=== PATIENT | male | born 2000 ===

== ENCOUNTER 2022-01-24 23:26 | Emergency (ER) | payer BC, SELFPAY ==
[2022-01-25 01:01] VITALS: BP 153/79; PULSE 72; RESP 18; TEMP 36.8; O2SAT 99; BMI 26.5
[2022-01-25 01:39] LABS: PCR FLU A Negative PCR FLU A (Negative); PCR FLU B Negative PCR FLU B (Negative)
[2022-01-25 01:46] LABS: SARS PCR* Negative SARS-CoV-2 (Negative)
--- NOTE | 2022-01-25 01:49 | CRLHL7_ITS ---
For Patients: As a result of the Cures Act, medical imaging exams and procedure reports are released immediately into your electronic medical record. You may view this report before your referring provider. If you have questions, please contact your health care provider. INDICATION: Right upper quadrant pain. COMPARISON: None available. TECHNIQUE: Ultrasound examination of the right upper quadrant was performed. FINDINGS: The gallbladder is contracted, with normal thickness of its wall at 3 millimeters. There is no sign of cholelithiasis. The patient has severe epigastric pain, 8/10. The pain is not localized to the right upper quadrant however. The common bile duct is normal in caliber at 3 mm. The pancreas is obscured by bowel gas. The abdominal aorta and visualized portions of the inferior vena cava are normal in appearance. The liver shows no sign of mass or contour abnormality, and there is no sign of ascites. There is antegrade flow in the main portal vein. The right kidney has an interpolar simple cyst measuring 1.7 x 1.6 x 1.5 centimeters. IMPRESSION: Severe epigastric pain. Collapsed gallbladder which is otherwise normal in appearance. No sign of biliary ductal dilatation. Dictated by Gato Patel MD @ 01/25/2022 4:09:35 AM (Electronically Signed)
--- NOTE | 2022-01-25 01:50 | ED_ITS ---
HPI - General Adult General Time Seen by Provider: 01:50 Date Seen: 01/25/22 Chief complaint: Abdominal Pain Stated complaint: Abdominal pain Time Seen by Provider: 01/25/22 01:41 Source: patient and RN notes reviewed Mode of arrival: ambulatory Limitations: no limitations History of Present Illness HPI narrative: 21-year-old male who presents today with epigastric pain starting yesterday. Pain is constant, worse with movement, does not seem to be better or worse with eating or drinking. He took Tums at home with no improvement. No nausea vomiting, no diarrhea, normal bowel movement yesterday. No prior surgeries. Notes some body aches as well. Denies sore throat, runny nose, cough, chest, difficulty breathing. Related Data Home Medications Medication Instructions Recorded Confirmed No Known Home Medications 01/25/22 01/25/22 Allergies Allergy/AdvReac Type Severity Reaction Status Date / Time No Known Drug Allergies Allergy Verified 01/25/22 01:03 Review of Systems Status of ROS: Reports: 10 or more systems reviewed and unremarkable except as noted in History and below [facility] Medical History (Updated 01/25/22 @ 04:48 by Darren Hsu MD) No significant past medical history Surgical History (Updated 01/25/22 @ 04:22 by Juan Carlos Torrez RN) No significant past surgical history Social History Smoking Status: Never smoker Do you use any of these nicotine containing products: None Second hand tobacco smoke exposure: No How often do you have a drink containing alcohol: never How often do you have six or more drinks on one occasion: Never AUDIT-C Alcohol total score: 0 Non-prescribed substance use: denies use Exam Narrative: Exam Narrative: General: Well-developed and well-nourished, no acute distress Head: Atraumatic and normocephalic Eyes: Pupils are equal reactive, extraocular motions intact, conjunctiva clear ENT: External nose and ears are normal, posterior pharynx without erythema or exudate Neck: No midline cervical tenderness, full spontaneous range of motion the neck, trachea midline, no adenopathy Heart: Regular rate and rhythm no murmurs or thrills Lungs: Clear to auscultation bilaterally without wheezes or crackles Abdomen: Soft, right upper quadrant and epigastric tenderness, nondistended with active bowel sounds Musculoskeletal: No tenderness, deformity, or edema Neurologic: Awake, alert, and oriented x3, no gross focal neurologic deficits, cranial nerves intact as tested Psych: Mood and affect are appropriate Skin: No rashes Const: Vital Signs, click to edit/add: Vital Signs - 24 hr 01/25/22 01:01 01/25/22 04:22 Temperature 98.3 F 98.5 F Pulse Rate [Right Pulse Oximeter] 72 79 Respiratory Rate 18 18 Blood Pressure [Ri ght Upper Arm] 153/79 H 144/74 H Pulse Oximetry 99 99 Oxygen Delivery Me thod Room Air Room Air Course Course Hospital Course: Patient seen and examined, prior records are reviewed. Differential diagnosis includes but not limited to pancreatitis, gastritis, colitis, cholecystitis. Patient presents with epigastric pain today, on exam has epigastric and right upper quadrant tenderness. Labs and ultrasound ordered, patient declines pain medication. Reevaluation(s) Reevaluation #1: Labs are reassuring, ultrasound does not demonstrate any acute cholecystitis of the finding. Symptoms are most consistent with gastritis and possible early ulcer. Discussed starting PPI, avoidance of ibuprofen, and follow-up. Time: 04:49 Vital Signs Vital signs: Initial Vital Signs Temperature 98.3 F 01/25/22 01:01 Temperature Source Temporal Artery Scan 01/25/22 01:01 Pulse Rate 72 01/25/22 01:01 Respiratory Rate 18 01/25/22 01:01 Blood Pressure 153/79 H 01/25/22 01:01 Blood Pressure Mean 103 01/25/22 01:01 Blood Pressure Position Sitting 01/25/22 01:01 Pulse Oximetry 99 01/25/22 01:01 Oxygen Delivery Method 01/25/22 01:01 Vital Signs Temperature 98.3 F 01/25/22 01:01 Pulse Rate 72 01/25/22 01:01 Respiratory Rate 18 01/25/22 01:01 Blood Pressure 153/79 H 01/25/22 01:01 Pulse Oximetry 99 01/25/22 01:01 Oxygen Delivery Method 01/25/22 01:01 Temperature 98.5 F 01/25/22 04:22 Pulse Rate 79 01/25/22 04:22 Respiratory Rate 18 01/25/22 04:22 Blood Pressure 144/74 H 01/25/22 04:22 Pulse Oximetry 99 01/25/22 04:22 Oxygen Delivery Method 01/25/22 04:22 Medical Decision Making Medical Records Medical records reviewed: Yes I reviewed the patient's medical records Lab Data Lab results reviewed: Yes I reviewed the patient's lab results Labs: Lab Results 01/25/22 01/25/22 01/25/22 Range/Units 01:00 01:55 01:55 WBC 10.05 (4.50-11.00) K/uL RBC 5.90 (4.30-5.90) m/uL Hgb 15.8 (13.5-17.5) gm/dL Hct 46.5 (37.0-53.0) % MCV 79 L (80-100) fL MCH 27 (26-34) pg MCHC 34 (32-36) gm/dL RDW Coeff of Rishi 13.4 (11.5-15.5) % Plt Count 179 (140-440) K/uL Neut % (Auto) 67.6 (42.0-72.0) % Lymph % (Auto) 25.1 (20-44) % Dewitt % (Auto) 6.1 (0.0-11.0) % Eos % (Auto) 0.7 (0.0-7.0) % Baso % (Auto) 0.2 (0.0-3.0) % Neut # (Auto) 6.80 (1.7-7.0) K/uL Lymph # (Auto) 2.52 (0.90-2.90) K/uL Dewitt # (Auto) 0.60 (0.00-0.90) K/UL Eos # (Auto) 0.07 (0.00-0.50) K/uL Baso # (Auto) 0.02 (0.00-0.30) K/uL Abs Immat Gran (auto) 0.03 (0.00-0.30) K/uL Imm/Tot Granulo (auto) 0.3 % Sodium 142 (135-149) mmol/L Potassium 3.8 (3.6-5.1) mmol/L Chloride 105 (96-114) mmol/L Carbon Dioxide 28 (20-32) mmol/L BUN 19 (5-24) mg/dL Creatinine 1.0 (0.5-1.5) mg/dL Estimated Creat Clear 121.67 Estimated GFR 111 ml/min Glucose 100 (60-115) mg/dL Calcium 9.8 (8.4-10.6) mg/dL Total Bilirubin 0.7 (0.1-1.5) mg/dL Direct Bilirubin 0.1 (0.0-0.5) mg/dL AST 36 H (12-35) U/L ALT 51 H (4-50) U/L Alkaline Phosphatase 86 (40-150) U/L Total Protein 8.1 (6.0-8.3) g/dL Albumin 5.0 (3.3-5.0) g/dL Lipase 56 (23-300) U/L SARS-CoV-2 (PCR) Negative SARS-CoV-2 (Negative) Influenza Type A (PCR) Negative PCR FLU A (Negative) Influenza Type B (PCR) Negative PCR FLU B (Negative) Discharge Plan Discharge Clinical Impression: Gastritis, Acute epigastric pain Patient Disposition: Home, Self-Care Condition: Stable Instructions: Gastritis (DC), Diet for Stomach Ulcers and Gastritis (ED) Additional Instructions: Start taking Protonix or Nexium. Avoid ibuprofen for the next week. Activity Level: No Restrictions Discharge Diet: Regular Prescriptions: No Action No Known Home Medications Follow Up/Referrals: Issac Curiel MD [Primary Care Provider] - Stand Alone Forms: [employer] Info Instructions
[2022-01-25 02:02] LABS: Basophils Absolute Auto 0.02 K/uL (0.00-0.30); Basophils Percent Auto 0.2 % (0.0-3.0); Eosinophils Absolute Auto 0.07 K/uL (0.00-0.50); Eosinophils Percent Auto 0.7 % (0.0-7.0); Hematocrit 46.5 % (37.0-53.0); Hemoglobin* 15.8 gm/dL (13.5-17.5); Immature Granulocytes Abs Auto 0.03 K/uL (0.00-0.30); Immature Granulocytes Pct Auto 0.3 %; Lymphocytes Absolute Auto 2.52 K/uL (0.90-2.90); Lymphocytes Percent Auto 25.1 % (20-44); Mean Corpuscular HGB Conc 34 gm/dL (32-36); Mean Corpuscular Hemoglobin 27 pg (26-34); Mean Corpuscular Volume 79 fL (80-100); Monocytes Percent Auto 6.1 % (0.0-11.0); Neutrophils Percent Auto 67.6 % (42.0-72.0); Platelet Count* 179 K/uL (140-440); RDW Coefficient of Variation % 13.4 % (11.5-15.5); White Blood Count* 10.05 K/uL (4.50-11.00)
[2022-01-25 02:10] LABS: Slide Review Reflex No
[2022-01-25 02:16] LABS: Chloride* 105 mmol/L (96-114); Sodium* 142 mmol/L (135-149)
[2022-01-25 02:17] LABS: Potassium* 3.8 mmol/L (3.6-5.1)
[2022-01-25 02:18] LABS: Est. Creatinine Clearance* 121.67; Estimated Glomerular Filt Rate 111 ml/min
[2022-01-25 02:19] LABS: Alanine Aminotransferase* 51 U/L (4-50); Alkaline Phosphatase* 86 U/L (40-150); Aspartate Amino Transferase* 36 U/L (12-35); Bilirubin Direct* 0.1 mg/dL (0.0-0.5); Bilirubin Total* 0.7 mg/dL (0.1-1.5); Blood Urea Nitrogen* 19 mg/dL (5-24); Calcium* 9.8 mg/dL (8.4-10.6); Carbon Dioxide* 28 mmol/L (20-32); Glucose* 100 mg/dL (60-115); Lipase* 56 U/L (23-300); Total Protein* 8.1 g/dL (6.0-8.3)
[2022-01-25 04:22] VITALS: BP 144/74; PULSE 79; RESP 18; TEMP 36.9; O2SAT 99
[2022-01-25 05:13] VITALS: BP 144/74; PULSE 79; RESP 18; TEMP 36.9
== END 2022-01-25 05:13 | disposition home or self-care (01) ==
PROVIDERS: Emergency Provider Family Medicine; PCP Family Medicine
DX: R10.13 Epigastric pain (principal); K29.70 Gastritis, unspecified, without bleeding
CPT/HCPCS: 36415; 76705; 80048; 80076; 83690; 85025; 87502; 87631; 87634; 87635; 99283; 99284